=== PATIENT | female | born 1990 | race Caucasian/White ===

== ENCOUNTER 2020-10-05 09:31 | Emergency (ER) | payer OTHER ==
[~2020-10-05] VITALS: Ht 165.1 cm; Wt 85.0 kg
[2020-10-05] MEDS ORDERED: BACITRACIN500 UNIT/G TOP ×2 (10:01→12:00)
[2020-10-05] MEDS ORDERED: OFLOXACIN0.3 % OU ×2 (10:01→12:00)
[2020-10-05 12:05] VITALS: BP 118/68
== END 2020-10-05 12:05 | disposition home or self-care (01) | DRG 125 ==
LOC: ED 09:31
DX: T26.02XA Burn of left eyelid and periocular area, initial encounter (principal); T26.01XA Burn of right eyelid and periocular area, initial encounter; X04.XXXA Exposure to ignition of highly flammable material, initial encounter; Y93.89 Activity, other specified; Y92.89 Other specified places as the place of occurrence of the external cause; Y99.0 Civilian activity done for income or pay